=== PATIENT | female | born 1950 | race Caucasian/White ===

== ENCOUNTER 2017-06-06 11:20 | Emergency (ER) | payer MEDICARE, OTHER ==
[~2017-06-06] VITALS: Ht 160 cm; Wt 61.4 kg
[~2017-06-06 11:20] MED LIST: AMLO-147 PO; IBUPROFEN 600 MG; PANT40TA3 PO; ZOC10 PO
[2017-06-06 11:25] VITALS: Ht 160 cm; Wt 61.4 kg
[2017-06-06] MEDS ORDERED: PROCHLORPERAZINE 10 MG INJ IV ONE (12:00)
[2017-06-06] MEDS ORDERED: SOD CHLORIDE 0.9% 1,000 ML IV STA (12:04)
[2017-06-06] MEDS ORDERED: DIAZEPAM 5 MG TAB PO ONE (13:30)
[2017-06-06] MEDS ORDERED: DIAZEPAM 5 MG/ML SYG IV ONE (13:30)
[2017-06-06] MEDS ORDERED: AMLODIPINE 10 MG TAB PO ONE (14:00)
[2017-06-06] MEDS ORDERED: MECL-77 PO (14:31)
[2017-06-06] MEDS ORDERED: DIAZ-90 PO (14:35)
--- NOTE | 2017-06-06 14:37 | ERD ---
ER Documentation Chief Complaint Chief Complaint dizziness x1mth, dx:vertigo on meds, feeling today HPI 66-year-old female with a history of hypertension presenting to the ER with complaints of vertigo. The patient states that this started about 1 month ago. She had occasional strange sounds in her ears that she cannot describe. She was seen by her primary care doctor who placed her on meclizine about 1 week ago. She has been taking the medication for 1 week without any significant relief. Her symptoms are intermittent, worse with head movement. There is no alleviating factors. She denies any associated headache, chest pain, shortness of breath, vision disturbance, or vomiting. She has had some mild nausea with the room spinning dizziness. She denies any history of head injury. ROS All systems reviewed and are negative except as per history of present illness. Medications Home Meds Active Scripts Diazepam* (Valium*) 5 Mg Tablet, 5 MG PO Q8 Y for vertigo, #10 TAB Prov:JULIÁN CANTRELL MD 06/06/17 Reported Medications Meclizine Hcl* (Meclizine Hcl*) 25 Mg Tablet, 25 MG PO Q6 Y for DIZZINESS, TAB 06/06/17 Simvastatin (Simvastatin) 10 Mg Tablet, 10 MG PO DAILY 02/18/13 Amlodipine Besylate* (Amlodipine Besylate*) 10 Mg Tablet, 10 MG PO DAILY 02/18/13 Discontinued Reported Medications [IBUPROFEN 600mg PRN] No Conflict Check 03/04/15 Pantoprazole* (Protonix*) 40 Mg Tablet.dr, 40 MG PO DAILY, TAB 03/04/15 Allergies Allergies: Coded Allergies: No Known Allergies (Verified Allergy, Unknown, 02/22/16) PMhx/Soc History of Surgery: Yes (LOW BACK SURGERY, TAIWO HAND TRIGGER RELEASE, RHINOPLASTY, SPLENECTOMY) Anesthesia Reaction: No Hx Neurological Disorder: No (MIGRAINES & VERTIGO) Hx Respiratory Disorders: No Hx Cardiac Disorders: Yes (HTN) Hx Psychiatric Problems: No Hx Miscellaneous Medical Probl: No Hx Alcohol Use: No Hx Substance Use: No Hx Tobacco Use: No Smoking Status: Never smoker FmHx Family History: No diabetes Physical Exam Vitals Vital Signs Date Time Temp Pulse Resp B/P Pulse Ox O2 Delivery O2 Flow Rate FiO2 06/06/17 15:35 75 16 150/72 99 Room Air 06/06/17 11:25 97.9 68 18 195/88 100 Physical Exam Const: Well-appearing, appears uncomfortable secondary to his dizziness Head: Atraumatic Eyes: Normal Conjunctiva, PERRLA, EOMI with right sided horizontal nystagmus ENT: Normal External Ears, Nose and Mouth. Neck: Full range of motion..~ No meningismus. No JVD Resp: Clear to auscultation bilaterally Cardio: Regular rate and rhythm, no murmurs. 2+ distal pulses in all 4 extremities Abd: Soft, non tender, non distended. Normal bowel sounds Skin: No petechiae or rashes Back: No midline or flank tenderness Ext: No cyanosis, or edema Neur: Awake and alert, oriented 3, cranial nerves intact, strength and sensations intact in all 4 extremities. Gait not tested secondary to unsteadiness and dizziness. Head impulse test positive/abnormal. Test of skew normal. Psych: Normal Mood and Affect Result Diagram: 06/06/17 1146 06/06/17 1146 Results 24 hrs Laboratory Tests Test 06/06/17 11:46 06/06/17 12:27 White Blood Count 6.610^3/ul Red Blood Count 6.2710^6/ul Hemoglobin 12.2g/dl Hematocrit 39.8% Mean Corpuscular Volume 63.5fl Mean Corpuscular Hemoglobin 19.5pg Mean Corpuscular Hemoglobin Concent 30.7g/dl Red Cell Distribution Width 17.5% Platelet Count 98748^3/UL Mean Platelet Volume 10.9fl Neutrophils % 49.2% Lymphocytes % 40.4% Monocytes % 6.7% Eosinophils % 1.7% Basophils % 1.8% Nucleated Red Blood Cells % 0.6/100WBC Neutrophils # 3.310^3/ul Lymphocytes # 2.710^3/ul Monocytes # 0.410^3/ul Eosinophils # 0.110^3/ul Basophils # 0.110^3/ul Nucleated Red Blood Cells # 0.010^3/ul Sodium Level 144mmol/L Potassium Level 4.1mmol/L Chloride Level 109mmol/L Carbon Dioxide Level 29mmol/L Anion Gap 10 Blood Urea Nitrogen 18mg/dl Creatinine 0.81mg/dl Glucose Level 93mg/dl Calcium Level 9.1mg/dl Troponin I < 0.012ng/ml Bedside Glucose 98mg/dL Current Medications Medications (Trade) Dose Ordered Sig/Akira Route PRN Reason Start Time Stop Time Status Last Admin Dose Admin Prochlorperazine 10 mg 10 mg ONCE ONCE IV 06/06/17 12:00 06/06/17 12:01 DC 06/06/17 12:34 Sodium Chloride (NS) 1,000 ml @ 1,000 mls/hr Q1H STAT IV 06/06/17 12:04 06/06/17 13:03 DC 06/06/17 12:34 Diazepam (Valium) 5 mg ONCE ONCE IV 06/06/17 13:30 06/06/17 13:30 DC Diazepam (Valium) 10 mg ONCE ONCE PO 06/06/17 13:30 06/06/17 13:31 DC 06/06/17 13:46 Amlodipine Besylate (Norvasc) 10 mg ONCE ONCE PO 06/06/17 14:00 06/06/17 14:01 DC Procedures/MDM EMERGENT LABS AND DIAGNOSTIC STUDIES: Lab Results above were reviewed and interpreted by me. CBC showed thrombocytosis of unknown etiology BMP was normal 12-lead EKG was interpreted by Elisa Cantrell MD: Normal Sinus Rhythm Normal axis Normal intervals No acute ST or T wave changes suggestive of acute ischemia or STEMI. Initial Nursing notes reviewed. Previous Medical Records requested via the Electronic Health Record. EMERGENCY DEPARTMENT COURSE / MEDICAL DECISION MAKING: Patient arrived to the ER with complaints of acute on chronic vertigo. Her vitals were notable for hypertension. However I have a low suspicion for aortic dissection, acute stroke, or acute intracranial hemorrhage. I do not suspect meningitis or encephalitis. Her exam is more consistent with a peripheral etiology of vertigo. IV was placed. She was initially treated with Compazine with no significant relief of her vertigo. I later gave her Valium 10 mg p.o. with improvement of her dizziness. She states it is not as bad as it was when she came in and she feels comfortable going home at this time. I do not believe neurologic imaging is necessary at this time. I will give her prescription for Valium for home and encouraged her to follow-up with her primary care doctor tomorrow. I recommended referral to a specialist if needed. Return precautions were discussed. She was encouraged to return for any worsening or persistent symptoms. Patient's blood pressure was elevated (>120/80) but appears stable without evidence of hypertensive emergency or urgency. The patient was counseled about the risks of hypertension and urged to pursue outpatient monitoring and therapy within a week with their primary care physician. Departure Diagnosis: Primary Impression: Vertigo Condition: Stable Patient Instructions: Inner Ear Problems: Causes of Dizziness (Vertigo), Vertigo, Unspecified Additional Instructions: Follow up with your doctor to get a referrral to an Ear, Nose and Throat specialist. Return to the ER immediately if you have worsening symptoms. JULIÁN CANTRELL MD Jun 06, 2017 14:37
[2017-06-06 15:35] VITALS: BP 150/72; PULSE 75; RESP 16
== END 2017-06-06 18:21 | disposition home or self-care (01) ==
LOC: E/R 11:20
DX: R42 Dizziness and giddiness (principal); R40.2252 Coma scale, best verbal response, oriented, at arrival to emergency department; I10 Essential (primary) hypertension; R40.2142 Coma scale, eyes open, spontaneous, at arrival to emergency department; R40.2362 Coma scale, best motor response, obeys commands, at arrival to emergency department
CPT/HCPCS: 80048; 82962; 84484; 85025; 93005; 96374; 99284; J7030

== ENCOUNTER 2018-02-07 05:31 | Observation (INO) | END 2018-02-08 19:00 | disposition home or self-care (01) ==

== ENCOUNTER 2018-03-27 11:26 | Emergency (ER) | END 2018-03-27 14:05 | disposition home or self-care (01) ==